=== PATIENT | male | born 1970 | race African-American/Black ===

== ENCOUNTER 2017-01-17 10:10 | Emergency (ER) | payer SELFPAY ==
[~2017-01-17 10:10] MED LIST: PT DENIES HOME MEDS
== END 2017-01-17 10:15 | disposition home or self-care (01) ==
LOC: ER 10:10
DX: M77.9 Enthesopathy, unspecified (principal); F17.200 Nicotine dependence, unspecified, uncomplicated
CPT/HCPCS: 99283

== ENCOUNTER 2017-02-03 10:33 | Emergency (ER) | payer SELFPAY | END 2017-02-03 13:04 | disposition home or self-care (01) | LOC: ER 10:33 | DX: S30.0XXA Contusion of lower back and pelvis, initial encounter (principal); S50.312A Abrasion of left elbow, initial encounter; S50.311A Abrasion of right elbow, initial encounter; F17.200 Nicotine dependence, unspecified, uncomplicated; Y02.0XXA Assault by pushing or placing victim in front of motor vehicle, initial encounter | CPT/HCPCS: 72100; 72125; 73080-50; 96372; 99284; A9270-GY; J1885 ==